=== PATIENT | female | born 1950 | race Caucasian/White ===

== ENCOUNTER 2023-08-06 00:17 | Inpatient (IN) | payer MEDICARE, SELFPAY ==
[2023-08-06] VITALS (9 sets, daily range): BP systolic 109–143; BP diastolic 39–57; PULSE 88–103; RESP 12–18; TEMP 36.6–38.2; O2SAT 94–99; BMI 25.0; BMI 25.8
--- NOTE | 2023-08-06 | ECG_ITS ---
Test Reason : ABDOMINAL PAIN Blood Pressure : / mmHG Vent. Rate : 086 BPM Atrial Rate : 086 BPM P-R Int : 128 ms QRS Dur : 066 ms QT Int : 362 ms P-R-T Axes : 072 026 049 degrees QTc Int : 433 ms Normal sinus rhythm Biatrial enlargement Nonspecific ST abnormality Abnormal ECG No previous ECGs available Referred By: Generic ED Physician Electronically Signed By:WESTON BOONE MD
--- NOTE | ~2023-08-06 | CT_ITS ---
EXAMINATION: CT ABDOMEN AND PELVIS WITH CONTRAST CLINICAL INFORMATION: Left lower quadrant and right lower quadrant pain COMPARISON: None available. TECHNIQUE: Multidetector volumetric images were obtained from the superior aspect of the liver through the pubic symphysis following administration 85 mL of Omnipaque 350 intravenous contrast. Sagittal and coronal reformatted images were obtained on the technologist's workstation. Oral contrast: No This CT examination was performed using dose optimization techniques as appropriate, variously including the following: *Automated exposure control *Adjustment of mA and/or kV according to patient size (this includes techniques or standardized protocols for targeted exams where dose is matched to indication/reason for exam; i.e. extremities or head) *Use of iterative reconstruction technique DLP: 483 mGy-cm FINDINGS: LUNG BASES: There is bibasilar dependent atelectasis/scarring. The heart size is normal. LIVER, GALLBLADDER, AND BILIARY TREE: The liver is normal in size, shape, and attenuation. No focal hepatic lesion or biliary ductal dilatation is present. The gallbladder is unremarkable with no evidence of radiopaque gallstones, gallbladder wall thickening, or obvious pericholecystic inflammatory changes. PANCREAS: Unremarkable. SPLEEN: Unremarkable. ADRENAL GLANDS: Unremarkable. KIDNEYS AND URETERS: The kidneys are normal in size, shape, and attenuation. No hydronephrosis, hydroureter, or calculi seen. No perinephric stranding. BLADDER: Unremarkable. GASTROINTESTINAL TRACT: There is a large amount of stool seen in the colon especially a low-lying cecum in the pelvis. There is short segment mural thickening involving the sigmoid colon but no diverticuli seen in this region. This could be secondary to colitis. There is abnormal thickened appendix measuring 1.5 cm wide. The small bowel loops are normal caliber. The stomach is nondistended with a small hiatal hernia. ABDOMINAL WALL: Small umbilical hernia containing fat is noted. LYMPH NODES: Normal. VASCULAR: Atherosclerotic changes of abdominal aorta are noted without aneurysmal dilatation.. PELVIC VISCERA: There is a small amount of free fluid in the pelvis. The uterus is midline neutral no adnexal masses seen. No abnormal pelvic or inguinal lymph nodes. OSSEOUS STRUCTURES: Unremarkable. CT/CT abdomen pelvis w IV con IMPRESSION: Abnormal study of the pelvis. There is short segment mural thickening involving the sigmoid colon and abnormal appendix. Whether this represents appendicitis with colitis versus colitis with reactionary appendix inflammation. There is small amount of free fluid in the pelvis. No free air seen. Moderate to significant constipation especially large amount of stool in the low-lying cecum in pelvis. Fleischner guidelines were followed.
--- NOTE | 2023-08-06 00:57 | MHC.EDTECH ---
Patient brought from triage,labs were obtained and sent to lab. Patient attempted to give a urine,but was unable to at this time.
[2023-08-06 00:58] LABS: Hematocrit 42.4 % (37.0-47.0); Hemoglobin 13.9 g/dl (12.0-16.0); Mean Corpuscular HGB Conc 32.8 g/dl (31.0-35.0); Mean Corpuscular Hemoglobin 28.8 pg (27.0-33.0); Mean Corpuscular Volume 87.8 fL (80.0-98.0); Mean Platelet Volume 9.6 fL (9.4-12.3); Platelet Count 289 X10*3/uL (160-400); Red Blood Count 4.83 X10*6/uL (4.20-5.50); Red Cell Distribution Width 13.2 % (11.0-16.0); White Blood Count 6.3 X10*3/uL (4.8-10.8)
--- NOTE | 2023-08-06 01:01 | MHC.EDTECH ---
Urine collected and sent to lab.
[2023-08-06 01:08] LABS: Appearance Urine Clear; Color Urine Yellow; Glucose Urine UA Negative (Negative); Leukocyte Esterase Urine Negative (Negative); Nitrite Urine Negative (Negative); Specific Gravity - Urine 1.015 (1.005-1.025); UMIC TRIGGER UACC YES; Urine Blood Negative (Negative); Urine Ketones 80 mg/dL (Negative); Urine Protein 100 (2+) mg/dL (Neg-Trace)
[2023-08-06 01:13] LABS: Alanine Aminotransferase 18 U/L (0-31); Albumin Level 4.1 g/dL (3.5-5.0); Alkaline Phosphatase 50 U/L (39-117); Anion Gap 12 (12-20); Aspartate Amino Transferase 22 U/L (5-31); Bilirubin Total 0.5 mg/dL (0.0-1.0); Blood Urea Nitrogen 15 mg/dL (9-16); Calcium 9.4 mg/dL (8.4-10.2); Carbon Dioxide 26 mmol/L (22-29); Chloride 104 mmol/L (96-108); Creatinine Clr Calc Pharmacy 61.1; Estimated Glomerular Filt Rate > 60; Glucose Random 160 mg/dL (60-115); Potassium 3.5 mmol/L (3.3-5.1); Sodium 138 mmol/L (135-145); Total Protein 6.7 g/dL (6.5-8.0)
[2023-08-06 01:19] LABS: Bacteria Urine None Seen (None Seen); Squamous Epithelial Cell Urine 0-2 /HPF (0-2); WBC Urine 0-5 /HPF (0-5)
[2023-08-06] MEDS: ondansetron HCL 4 MG/2 ML VIAL IVPUSH ×4 (04:23→20:51)
--- NOTE | 2023-08-06 04:30 | PC.NURSE ---
pt arrived from waiting room had vomiting episode. iv established. zofran given per nov. vss. changed into hospital gown and on heart monitor 91 bpm.
[2023-08-06 04:39] LABS: Bilirubin Direct 0.2 mg/dL (0.0-0.5); Lipase 9 U/L (8-78)
--- NOTE | 2023-08-06 06:50 | ED.ABDPAIN ---
HPI - Abdominal Pain General Chief Complaint: Abdominal Pain Stated Complaint: Lower Abdominal Pain Time Seen by Provider: 08/06/23 06:40 Source: patient and family () Mode of arrival: ambulatory Limitations: no limitations History of Present Illness HPI narrative: 72 year old female with pmhx significant for T1DM, HTN, HDL presents to the ED today with complaint of LLQ abdominal pain occurring acutely at 1600 yesterday. Reports pain has been constant and worsening since onset. Rates pain intensity 9/10 at present. Pain is worse with movement/ touching of the abdomen. Additionally endorses nausea with 4 episodes of vomiting. Last vomited a few hours ago. Emesis is brown in color. No bright red blood. Reports decreased P.O intake and difficulty passing BM since onset of symptoms yesterday. Admits to colonoscopy ~1 mo ago where a small polyp was removed. No complications. Denies fever, chills, sore throat, sob, cough, wheezing, neck or back pain, diarrhea, dysuria, hematuria. Denies recent travel. Denies known sick contacts. Related Data Home Medications Medication Instructions Recorded Confirmed amlodipine 5 mg-benazepril 20 mg 1 cap PO BID 08/06/23 08/06/23 capsule aspirin 81 mg tablet,delayed 81 mg PO DAILY 08/06/23 08/06/23 release calcium citrate 1,000 mg PO DAILY 08/06/23 08/06/23 clonidine HCl 0.2 mg tablet 0.2 mg PO BID 08/06/23 08/06/23 denosumab 60 mg/mL subcutaneous 60 mg subcut Q6M 08/06/23 08/06/23 syringe (Prolia) hydrochlorothiazide 12.5 mg capsule 12.5 mg PO DAILY 08/06/23 08/06/23 insulin detemir U-100 100 unit/mL 3 unit subcut BEDTIME 08/06/23 08/06/23 subcutaneous solution (Levemir U-100 Insulin) insulin detemir U-100 100 unit/mL 22 unit subcut DAILY 08/06/23 08/06/23 subcutaneous solution (Levemir U-100 Insulin) insulin lispro-aabc 100 unit/mL See Protocol subcut TIDAC 08/06/23 08/06/23 subcutaneous pen (Alfredo Felix U-100 Insulin) simvastatin 40 mg tablet 40 mg PO BEDTIME 08/06/23 08/06/23 Allergies Allergy/AdvReac Type Severity Reaction Status Date / Time neomycin [NEOMYCIN] Allergy Mild LOCAL EAR Verified 08/06/23 09:34 SWELLING FROM EAR DROPS YEARS AGO Review of Systems Review of Systems Constitutional: No fever, chills, fatigue, night sweats, weight changes ENT/Mouth: No ear pain, hearing loss, nasal congestion, sinus pain, rhinorrhea, sore throat Eyes: No eye pain, swelling, redness, vision changes, discharge Cardio: No chest pain, palpitations, HERMAN, orthopnea, peripheral edema Pulm: No SOB, cough, sputum, wheezing, dyspnea, hemoptysis GI: +nausea, +vomiting, No hematemesis, +abdominal pain, No diarrhea, constipation, hematochezia, melena : No irregular bleeding, dysuria, frequency, urgency, hesitancy, hematuria, flank pain, urinary flow changes, urinary incontinence or retention MSK: No back pain, neck pain, joint pain, myalgias Skin: No lesions, rashes Neuro: No weakness, numbness, paresthesias, LOC, dizziness, headache All other systems reviewed and are negative. [facility] Past Medical History Attestation statement: The following information was validated with the patient. Source: old records reviewed and nursing notes reviewed Medical History Graves disease Osteoporosis Hypercholesterolemia Hypertension Insulin dependent type 1 diabetes mellitus Surgical History H/O section Social History Patient Tobacco Use Status: Never used Tobacco Smoked in Last 30 Days: No Use of substances other than those prescribed or required for medical reasons: No Advance Directives: No Advance Directives Information Provided: Yes Physical Exam ED Vital Signs: Vital Signs - 24 hr 08/06/23 00:44 08/06/23 04:28 08/06/23 05:54 Temperature 98 F 99.4 F 99.3 F Pulse Rate 88 91 91 Respiratory Rate 16 17 17 Blood Pressure 118/47 L 143/56 H 129/50 L Pulse Oximetry 99 99 97 Oxygen Delivery Method Room Air Room Air Room Air 08/06/23 08:40 Temperature 100.3 F Pulse Rate 103 H Respiratory Rate 12 Blood Pressure 130/43 L Pulse Oximetry 98 Oxygen Delivery Method Room Air BMI result Body Mass Index 25.0 Vital signs stable Const General: cooperative, no acute distress, alert and awake Orientation/consciousness: patient oriented x3 Limitations: no limitations HENMT Mouth: Normal oral and palatal mucosa present and moist mucous membranes Eyes General: appearance normal, both eyes and all related structures Conjunctivae: conjunctivae normal Sclerae: sclerae normal Pupils: Equal, round and reactive pupils present Neck Neck: Yes normal visual inspection, Yes full ROM and Yes no lymphadenopathy Resp Effort & Inspection: normal respiratory effort Auscultation: clear to auscultation bilaterally Cardio Rate: regular rate Rhythm: regular rhythm Peripheral pulses: radial pulses present GI Other: +Abdomen soft, diffusely tender to palpation, no rebound tenderness or guarding. Normoactive bowel sounds x4. No hepatosplenomegaly. Inspection: Yes normal to inspection General: Yes no CVA tenderness Back/Spine/Pelvis Back: no CVA tenderness Skin General skin exam: no rashes or lesions noted Neuro General: patient oriented x3, gait normal and moves all extremities Cranial nerves: Yes Equal, round and reactive pupils present Extrem General: Yes normal to inspection, Yes full ROM and Yes capillary refill normal Course Course Course Narrative: 711-- EKG showing NSR with a rate of 86 bpm, QT 362, no acute ischemic changes or ST elevations. CBC without leukocytosis or anemia. Chemistry without acute electrolyte abnormality requiring intervention. Urine without evidence of infection. Labs unremarkable however given diffusely tender abdomen, will order ct abd/pelvis, zofran, and morphine for pain control. 0845--CT abdomen/ pelvis showing short-segment mural thickening involving the sigmoid colon with abnormal appendix. ?Appendicitis with colitis vs colitis with reactionary appendix inflammation. Small amount of free fluid in the pelvis. No free air. Moderate to significant constipation with large amount of stool in the low lying cecum >> Will consult general surgery. > RN informs me patient's temp has increased to 100/3. Tylenol ordered. 0900-- Dr. Anaya at bedside evaluating patient. General surgery to admit patient to their service for IV anitbiotics, observation, and ?surgery. Dr. Anaya to place admission orders. Medical Decision Making Medical Decision Making MDM Narrative: 72 year old female with pmhx significant for T1DM, HTN, HDL presents to the ED today with complaint of LLQ abdominal pain occurring acutely at 1600 yesterday. Vital signs stable, afebrile. Abdomen is soft, diffusely tender to palpation without rebound tenderness of guarding. Normoactive bs x4. No CVAT. Clinical concern for appendicitis, colitis, diverticulosis vs diverticulitis, SBO, constipation, acute abdomen. Unlikely UTI, nephrolithiasis, obstructive uropathy, pyelonephritits, ischemic bowel. Plan at this time is labs, UA, pain control, ct abd/pelvis, and re-evaluation. Differential Diagnosis Differential Diagnoses: The differential diagnosis associated with the presentation includes As above. Admission/Observation Consideration of admission/observation: Escalation of care including admission/observation considered This 72 yo patient with evidence of appendicitis and colitis on CT scan will be admitted to general surgery. Consult Healthcare Provider Management of the patient was discussed with: Sample Room Supervisor (Dr. Anaya (general surgery)) Lab Data MDM Lab Attestation statement: I reviewed the patient's lab results. As above. 08/06/23 00:53 08/06/23 00:53 Labs: Lab Results 08/06/23 08/06/23 08/06/23 Range/Units 00:53 01:01 07:44 WBC 6.3 (4.8-10.8) X10*3/uL RBC 4.83 (4.20-5.50) X10*6/uL Hgb 13.9 (12.0-16.0) g/dl Hct 42.4 (37.0-47.0) % MCV 87.8 (80.0-98.0) fL MCH 28.8 (27.0-33.0) pg MCHC 32.8 (31.0-35.0) g/dl RDW 13.2 (11.0-16.0) % Plt Count 289 (160-400) X10*3/uL MPV 9.6 (9.4-12.3) fL Absolute Nucleated RBC 0.000 (0.0-0.012) X10*3/uL Nucleated RBC % (auto) 0.0 (0.0-0.2) /100WBC Sodium 138 (135-145) mmol/L Potassium 3.5 (3.3-5.1) mmol/L Chloride 104 (96-108) mmol/L Carbon Dioxide 26 (22-29) mmol/L Anion Gap 12 (12-20) BUN 15 (9-16) mg/dL Creatinine 0.77 (0.5-1.4) mg/dL Estim Creat Clear Calc 61.1 Estimated GFR > 60 Random Glucose 160 H (60-115) mg/dL Calcium 9.4 (8.4-10.2) mg/dL Total Bilirubin 0.5 (0.0-1.0) mg/dL Direct Bilirubin 0.2 (0.0-0.5) mg/dL AST 22 (5-31) U/L ALT 18 (0-31) U/L Alkaline Phosphatase 50 (39-117) U/L Troponin I High Sens 8.3 (<3.5-17.0) ng/L Total Protein 6.7 (6.5-8.0) g/dL Albumin 4.1 (3.5-5.0) g/dL Lipase 9 (8-78) U/L Urine Color Yellow Urine Appearance Clear Urine pH 7.0 (5.0-9.0) Ur Specific [place] 1.015 (1.005-1.025) Urine Protein 100 (2+) H (Neg-Trace) mg/dL Urine Glucose (UA) Negative (Negative) mg/dL Urine Ketones 80 (Negative) mg/dL Urine Blood Negative (Negative) Urine Nitrite Negative (Negative) Ur Leukocyte Esterase Negative (Negative) Urine RBC 3-5 H (0-2) /HPF Urine WBC 0-5 (0-5) /HPF Ur Squamous Epith Cells 0-2 (0-2) /HPF Urine Bacteria None Seen (None Seen) Hyaline Casts 3-5 (0-2) /LPF Independent Interpretation I performed an independent interpretation of an: CT Scan Interpretation: EKG showing NSR with a rate of 86 bpm, QT 362, no acute ischemic changes or ST elevations. CT abd/pelvis showing mural thickening of sigmoid colon, agree with radiologist's interpretation. Radiology Impression Discussion of test interpretation with radiology: I have reviewed the radiologist's reading. Radiologist Impression: CT abdomen pelvis w IV con IMPRESSION: Abnormal study of the pelvis. There is short segment mural thickening involving the sigmoid colon and abnormal appendix. Whether this represents appendicitis with colitis versus colitis with reactionary appendix inflammation. There is small amount of free fluid in the pelvis. No free air seen. Moderate to significant constipation especially large amount of stool in the low-lying cecum in pelvis. Fleischner guidelines were followed. Independent Historian Clinical information obtained from an independent historian. History obtained from or confirmed by: Spouse External Record Review External record reviewed: Inpatient record Prescription Management I considered prescription management with: Pain Medication and Other (antiemetic) Chronic Conditions Patient?s care impacted by: Diabetes and Hypertension Medications Administered Generic Name Dose Route Start Last Admin Trade Name Freq PRN Reason Stop Dose Admin Aspirin 81 mg 08/06/23 14:30 08/06/23 17:41 Aspirin Enteric Coated 81 Mg Tablet.Dr PO Not Given DAILY FAITH Atorvastatin Calcium 20 mg 08/06/23 21:00 08/06/23 21:01 Atorvastatin Calcium 20 Mg Tablet PO 20 mg BEDTIME FAITH Administration Enoxaparin Sodium 40 mg 08/06/23 09:15 08/06/23 09:58 Enoxaparin Sodium 40 Mg/0.4 Ml Syringe SUBCUT 40 mg Q24H FAITH Administration Hydromorphone HCl 0.5 mg 08/06/23 09:11 08/06/23 20:38 Hydromorphone Hcl 0.5 Mg/0.5 Ml Syringe IVPUSH 0.5 mg Q3H PRN Administration Pain, Severe (Pain Scale 7-10) Protocol Lactated Ringer's 1,000 mls @ 100 mls/hr 08/06/23 09:15 08/06/23 09:49 Lr IVCONT 100 mls/hr .Q10H FAITH Administration Piperacillin Sod/Tazobactam 50 mls @ 100 mls/hr 08/06/23 09:15 08/06/23 20:52 Sod 3.375 gm/ Sodium Chloride IV 100 mls/hr Q6H FAITH Administration Insulin Human Lispro 0 unit 08/06/23 11:30 08/06/23 17:06 Insulin Lispro 100 Unit/Ml 3 Ml Vial SUBCUT 08/07/23 09:15 Not Given QIDACHS FAITH Protocol Ondansetron HCl 4 mg 08/06/23 09:11 08/06/23 20:51 Ondansetron Hcl 4 Mg/2 Ml Vial IVPUSH 4 mg QID PRN Administration Nausea Sodium Chloride 3 ml 08/06/23 16:00 08/06/23 17:06 0.9 % Sodium Chloride Flush 3 Ml Syringe IVFLUSH Not Given QSHIFT FAITH Discontinued Medications Generic Name Dose Route Start Last Admin Trade Name Rebeka PRN Reason Stop Dose Admin Acetaminophen 975 mg 08/06/23 08:43 08/06/23 08:46 Acetaminophen 325 Mg Tablet PO 08/06/23 08:44 975 mg ONCE ONE Administration Sodium Chloride 1,000 mls @ 999 mls/hr 08/06/23 07:15 08/06/23 09:33 Ns IV 08/06/23 08:15 Infused .Q1H1M FAITH Infusion Iohexol 85 ml 08/06/23 07:39 08/06/23 07:40 Iohexol 350 Mg/Ml 100 Ml Infus..Btl IV 08/06/23 07:40 85 ml ONCE ONE Administration Morphine Sulfate 2 mg 08/06/23 07:20 08/06/23 07:43 Morphine Sulfate 2 Mg/Ml Cartridge IM 08/06/23 07:21 2 mg ONCE ONE Administration Protocol Ondansetron HCl 4 mg 08/06/23 04:14 08/06/23 04:23 Ondansetron Hcl 4 Mg/2 Ml Vial IVPUSH 08/06/23 04:15 4 mg ONCE ONE Administration Ondansetron HCl 4 mg 08/06/23 07:20 08/06/23 07:43 Ondansetron Hcl 4 Mg/2 Ml Vial IVPUSH 08/06/23 07:21 4 mg ONCE ONE Administration Critical Care Time Critical Care Time Critical Care Time: Yes Total Critical Care Time: 60 Attestation: Critical care time in the amount of 60 minutes has been provided to the patient in terms of direct patient care, frequent reevaluation, consultation with general surgery, review and interpretation of medical data and results, and management of potentially life-threatening conditions. This is all outside of any medical procedures. Discharge Plan Discharge Clinical Impression: Appendicitis, Colitis Patient Disposition: Admitted As Inpatient Interventions: Admission Worksheet (ED) Last Done: 08/06/23 15:21 Discharge Date/Time: 08/06/23 15:21
[2023-08-06] MEDS: iohexoL 350 MG/ML 100 ML INFUS..BTL 85 ML IV (07:40)
[2023-08-06] MEDS: 0.9 % Sodium Chloride 1,000 ML 999 ML IV (07:43)
[2023-08-06] MEDS: Morphine Sulfate 2 MG/ML CARTRIDGE IM (07:43)
[2023-08-06 08:08] LABS: Troponin-I High Sensitivity 8.3 ng/L (<3.5-17.0)
[2023-08-06] MEDS: Acetaminophen 325 MG TABLET 975 MG PO (08:46)
--- NOTE | 2023-08-06 09:16 | P.HPGS_ITS ---
History of Present Illness History of Present Illness Date of Service: 08/06/23 Chief complaint: Lower Abdominal Pain Narrative: 72-year-old female patient presenting with a sudden onset of abdominal pain in the lower quadrants last evening. Patient reports a previous history of constipation but denies a similar history of abdominal pain prior to the current episode. She subsequently presented to the emergency department for further evaluation at approximately midnight this morning. She reports nausea and vomiting but denies diarrhea or bloody stool. Workup in the emergency department revealed a normal WBC. Examination did revealed tenderness in the lower abdomen, equally both right and left. CT abdomen and pelvis revealed a short area of possible colitis with a dilated appendix. Findings were suggestive either of acute appendicitis with surrounding colitis verses colitis with secondary from inflammation of the appendix. The patient is admitted to the surgical service for IV antibiotics and further monitoring. Her past history is significant for insulin-dependent diabetes, hypertension, and high cholesterol. Review of Systems Review of Systems: Yes all other systems are reviewed and are negative Constitutional: Constitutional: Reports chills, Reports fever(s), Denies headache(s), Denies poor appetite and Denies weakness ENT: Denies headache(s) Cardiovascular: Cardiovascular: Denies chest pain, Denies irregular heart rhythm, Denies palpitations and Denies dyspnea Respiratory: Respiratory: Denies cough, Denies excessive phlegm production and Denies dyspnea Gastrointestinal: Gastrointestinal: Reports abdominal pain, Reports bloating, Denies change in bowel habits, Reports constipation, Denies heartburn, Denies diarrhea, Reports nausea and Reports vomiting Genitourinary: Genitourinary: Denies urinary frequency Musculoskeletal: Musculoskeletal: Denies back pain, Denies muscle weakness and Denies numbness Integumentary/Breasts: Skin/Breast: Denies changing lesions and Denies unusual bruising Neurologic: Denies headache(s), Denies numbness, Denies paresthesias and Denies weakness Psychiatric: Psychiatric: Denies anxiety and Denies depression Endocrine: Endocrine: Denies palpitations Hematologic/Lymphatic: Hematologic/Lymphatic: Denies lymphadenopathy PMF Past Medical History Medical History (Updated 08/06/23 @ 09:23 by Héctor Anaya MD) Hypercholesterolemia Hypertension Insulin dependent type 1 diabetes mellitus Functional capacity: independent ambulation Surgical History Surgical History (Updated 08/06/23 @ 09:21 by Héctor Anaya MD) H/O section Social History Smoked in Last 30 Days: No Use of substances other than those prescribed or required for medical reasons: No Advance Directives: No Advance Directives Information Provided: Yes Meds Allergies Allergy/AdvReac Type Severity Reaction Status Date / Time neomycin [NEOMYCIN] Allergy Mild LOCAL EAR Unverified 06/01/20 14:52 SWELLING FROM EAR DROPS YEARS AGO Physical Exam Vital Signs: Vital Signs: Last Vital Signs Temp 100.3 F 08/06/23 08:40 Pulse 103 H 08/06/23 08:40 Resp 12 08/06/23 08:40 BP 130/43 L 08/06/23 08:40 Pulse Ox 98 08/06/23 08:40 O2 Del Method Room Air 08/06/23 08:40 BMI result Body Mass Index 25.0 Const: General: cooperative and tired appearing Nutritional Appearance: we ll nourished Orientation/consciousness: patient oriented x3 Limitations: no limitations HEENT: Head: Yes normocephalic and Yes atraumatic Ears: hearing grossly normal bilaterally Resp: Effort & Inspection: normal respiratory effort, no audible wheezes, no cough and no respiratory distress Cardio: Jugular venous distension: no JVD GI: Inspection: Yes normal to inspection Palpation (GI): Soft to palpation, Tenderness to palpation present (GI) in the LLQ and in the RLQ, no guarding, not rigid and Hepatosplenomegaly present Percussion: Yes normal to percussion Auscultation: normal bowel sounds Rectal Exam - Female: deferred Skin: Other: Warm, dry, no rash Neuro: General: patient oriented x3 Extrem: General: Yes no clubbing, cyanosis or edema Results Results Labs: Short CBC 08/06/23 Range/Units 00:53 WBC 6.3 (4.8-10.8) X10*3/uL Hgb 13.9 (12.0-16.0) g/dl Hct 42.4 (37.0-47.0) % Plt Count 289 (160-400) X10*3/uL BMP 08/06/23 00:53 Sodium 138 Potassium 3.5 Chloride 104 Carbon Dioxide 26 BUN 15 Creatinine 0.77 Calcium 9.4 Liver Function 08/06/23 Range/Units 00:53 Total Bilirubin 0.5 (0.0-1.0) mg/dL Direct Bilirubin 0.2 (0.0-0.5) mg/dL AST 22 (5-31) U/L ALT 18 (0-31) U/L Alkaline Phosphatase 50 (39-117) U/L Albumin 4.1 (3.5-5.0) g/dL Urine 08/06/23 Range/Units 01:01 Urine Color Yellow Urine Appearance Clear Urine pH 7.0 (5.0-9.0) Ur Specific [place] 1.015 (1.005-1.025) Urine Protein 100 (2+) H (Neg-Trace) mg/dL Urine Glucose (UA) Negative (Negative) mg/dL Abdomen CT scan report/results: image reviewed CT scan - pelvis: image reviewed Assessment and Plan (1) Appendicitis: Qualifiers: Appendicitis type: acute appendicitis Acute appendicitis type: other Qualified Code(s): K35.890 - Other acute appendicitis without perforation or gangrene Status: Acute (2) Colitis: Status: Acute Plan 72-year-old female patient presenting with complaints of lower abdominal pain of sudden onset beginning yesterday with no prodrome. Pain was associated with fever, constipation, nausea and vomiting. Workup revealed tenderness in the lower abdomen both the left and right side equally. Laboratories revealed a normal WBC and CT abdomen and pelvis are equivocal for either colitis or appendicitis with no evidence of perforation or abscess formation. Because of the severity of the patient's pain and the presence of fever, I recommended admission for observation and IV antibiotics. Hospitalist consultation will be requested for management of diabetes and other medical issues. A plan was discussed in detail with the patient and her and she agrees with the plan. Should her symptoms worsen she may require an exploratory laparoscopy, possible bowel resection or possible appendectomy. Quality Stroke Does the patient have a stroke diagnosis?: No VTE Prior VTE?: No VTE Risk Level:: Surgical - moderate VTE Device Contraindication: N/A - Device Ordered VTE Drug Contraindication: N/A - Med Ordered Procedures Date of Service Date of Service: 08/06/23
[2023-08-06] MEDS: Lactated Ringers 1,000 ML 100 ML IVCONT ×2 (09:49→22:48)
--- NOTE | 2023-08-06 09:54 | PC.NURSE ---
temp increased after tylenol, provider notified
[2023-08-06] MEDS: Piperacillin Sodium/Tazobactam 3.375 GM in 0.9 % Sodium Chloride 50 ML IV ×3 (09:58→20:52)
[2023-08-06] MEDS: Enoxaparin Sodium 40 MG/0.4 ML SYRINGE SUBCUT (09:58)
--- NOTE | 2023-08-06 10:27 | PC.NURSE ---
IV abt started after blood cultures x2 drawn by phlebotomy
--- NOTE | 2023-08-06 10:52 | PHA.MEDREC ---
Pharmacy Consult ? Medication Reconciliation Pharmacy has completed the medication reconciliation. Patient with list at bedside, stated that her last Prolia was given in April, next dose is due in October
--- NOTE | 2023-08-06 11:29 | P.CONHOSP_ITS ---
History of Present Illness Data of Consult Service Date: 08/06/23 Primary Care Provider: Unknown Physician HPI Reason for consult: Medical management Patient is a 72-year-old female with a PMH significant for insulin-dependent diabetes type 1, HTN, HLD, osteoporosis, and hx of Graves disease who was admitted to the hospital under general surgery for lower abdominal pain. Workup in the ED showed no leukocytosis but CT of abdomen and pelvis revealed findings suggestive of either acute appendicitis with surrounding colitis versus colitis with secondary inflammation of the appendix. Medical consult for routine medical management. Patient complains of diffuse lower abdominal pain. Had experienced nausea and vomiting since last night, though currently controlled. Patient denies any other acute medical complaints at this time. No chest pain/pressure, palpitations. No shortness of breath. Review of Systems 2 Review of Systems: Diffuse lkower abdominal pain [facility] Medical History (Updated 08/06/23 @ 11:51 by RODGER Duvall) Graves disease Osteoporosis Hypercholesterolemia Hypertension Insulin dependent type 1 diabetes mellitus Functional capacity: independent ambulation Surgical History H/O section Smoked in Last 30 Days: No Use of substances other than those prescribed or required for medical reasons: No Advance Directives: No Advance Directives Information Provided: Yes Meds Allergies Allergy/AdvReac Type Severity Reaction Status Date / Time neomycin [NEOMYCIN] Allergy Mild LOCAL EAR Verified 08/06/23 09:34 SWELLING FROM EAR DROPS YEARS AGO Active Medications: Current Medications Dextrose (Dextrose 50 % 25 Gm/50 Ml Syringe) 25 gm IVPUSH Q15M PRN; Protocol PRN Reason: per Hypoglycemia Standing Ord. Enoxaparin Sodium (Enoxaparin Sodium 40 Mg/0.4 Ml Syringe) 40 mg SUBCUT Q24H [facility] Last Admin: 08/06/23 09:58 Dose: 40 mg Glucose (Glucose Gel 15 Gm Gel..Gram.) 15 gm PO Q15M PRN; Protocol PRN Reason: per Hypoglycemia Standing Ord. Hydromorphone HCl (Hydromorphone Hcl 0.5 Mg/0.5 Ml Syringe) 0.5 mg IVPUSH Q3H PRN; Protocol PRN Reason: Pain, Severe (Pain Scale 7-10) Acetaminophen (Ofirmev) 1,000 mg in 100 mls @ 400 mls/hr IV Q6H PRN PRN Reason: Pain, Moderate(Pain Scale 4-6) Lactated Ringer's (Lr) 1,000 mls @ 100 mls/hr IVCONT .Q10H [facility] Last Admin: 08/06/23 09:49 Dose: 100 mls/hr Piperacillin Sod/Tazobactam (Sod 3.375 gm/ Sodium Chloride) 50 mls @ 100 mls/hr IV Q6H [facility] Last Admin: 08/06/23 09:58 Dose: 100 mls/hr Insulin Human Lispro (Insulin Lispro 100 Unit/Ml 3 Ml Vial) 0 unit SUBCUT QIDACHS [facility]; Protocol Stop: 08/07/23 09:15 Ondansetron HCl (Ondansetron Hcl 4 Mg/2 Ml Vial) 4 mg IVPUSH QID PRN PRN Reason: Nausea Sodium Chloride (0.9 % Sodium Chloride Flush 3 Ml Syringe) 3 [facility] Zolpidem Tartrate (Zolpidem Tartrate 5 Mg Tablet) 5 mg PO BEDTIME PRN PRN Reason: Insomnia Home Medications Medication Instructions Recorded Confirmed Last Taken Type amlodipine 5 mg-benazepril 20 mg 1 cap PO BID 08/06/23 08/06/23 08/05/23 History capsule aspirin 81 mg tablet,delayed 81 mg PO DAILY 08/06/23 08/06/23 08/05/23 History release calcium citrate 1,000 mg PO DAILY 08/06/23 08/06/23 08/05/23 History clonidine HCl 0.2 mg tablet 0.2 mg PO BID 08/06/23 08/06/23 08/05/23 History denosumab 60 mg/mL subcutaneous 60 mg subcut Q6M 08/06/23 08/06/23 04/24/23 History syringe (Prolia) hydrochlorothiazide 12.5 mg capsule 12.5 mg PO DAILY 08/06/23 08/06/23 08/05/23 History insulin detemir U-100 100 unit/mL 3 unit subcut BEDTIME 08/06/23 08/06/23 08/05/23 History subcutaneous solution (Levemir U-100 Insulin) insulin detemir U-100 100 unit/mL 22 unit subcut DAILY 08/06/23 08/06/23 08/05/23 History subcutaneous solution (Levemir U-100 Insulin) insulin lispro-aabc 100 unit/mL See Protocol subcut TIDAC 08/06/23 08/06/23 08/05/23 History subcutaneous pen (Alfredo PeñaPen U-100 Insulin) simvastatin 40 mg tablet 40 mg PO BEDTIME 08/06/23 08/06/23 08/05/23 History Physical Exam 2 Vital Signs and Narrative: Vital Signs: Last Vital Signs Temp 99.6 F 08/06/23 11:00 Pulse 88 08/06/23 11:00 Resp 18 08/06/23 11:00 BP 109/39 L 08/06/23 11:00 Pulse Ox 98 08/06/23 08:40 O2 Del Method Room Air 08/06/23 11:00 O2 Flow Rate 94 08/06/23 11:00 BMI result Body Mass Index 25.0 General: AOx3, no acute distress Resp: CTA bilaterally CVS: S1, S2, 2/6 chronic heart murmur heard at left sternal border GI: +BS, NT, no distention Skin: Warm, dry Neuro: Cranial nerves II-XII grossly intact bilaterally. Motor grossly intact bilaterally Extremities: No edema Psych: Appropriate affect Results Labs 08/06/23 00:53 08/06/23 00:53 Labs: Laboratory Results - last 24 hr 08/06/23 08/06/23 00:53 01:01 MCV 87.8 MCH 28.8 MCHC 32.8 RDW 13.2 Plt Count 289 MPV 9.6 Absolute Nucleated RBC 0.000 Nucleated RBC % (auto) 0.0 Anion Gap 12 Estim Creat Clear Calc 61.1 Estimated GFR > 60 Random Glucose 160 H Calcium 9.4 Total Bilirubin 0.5 Direct Bilirubin 0.2 AST 22 ALT 18 Alkaline Phosphatase 50 Total Protein 6.7 Albumin 4.1 Lipase 9 Urine Color Yellow Urine Appearance Clear Urine pH 7.0 Ur Specific [place] 1.015 Urine Protein 100 (2+) H Urine Glucose (UA) Negative Urine Ketones 80 Urine Blood Negative Urine Nitrite Negative Ur Leukocyte Esterase Negative Urine RBC 3-5 H Urine WBC 0-5 Ur Squamous Epith Cells 0-2 Urine Bacteria None Seen Hyaline Casts 3-5 Imaging Radiologist's Impressions: Impressions Abdomen/Pelvis CT 11/22/23 07:40 IMPRESSION: Abnormal study of the pelvis. There is short segment mural thickening involving the sigmoid colon and abnormal appendix. Whether this represents appendicitis with colitis versus colitis with reactionary appendix inflammation. There is small amount of free fluid in the pelvis. No free air seen. Moderate to significant constipation especially large amount of stool in the low-lying cecum in pelvis. Fleischner guidelines were followed. Assessment and Plan (1) Insulin dependent type 1 diabetes mellitus: Status: Acute (2) Colitis: Status: Acute Plan Patient is a 72-year-old female with a PMH significant for insulin-dependent diabetes type 1, HTN, HLD, osteoporosis, and hx of Graves disease who was admitted to the hospital under general surgery for lower abdominal pain. Workup in the ED showed no leukocytosis but CT of abdomen and pelvis revealed findings suggestive of either acute appendicitis with surrounding colitis versus colitis with secondary inflammation of the appendix. Medical consult for routine medical management. Lower abdominal pain CT of abdomen and pelvis with results suggestive of either acute appendicitis with surrounding colitis vs colitis with secondary inflammation of the appendix Patient is currently NPO, receiving IVF and IV antibiotics Plan as per General surgery Insulin-dependent diabetes type 1 Patient NPO, will hold long-acting insulin for now Will place on sliding scale insulin Diabetic diet once diet advanced Follow blood glucose levels HTN Will hold antihypertensives for now d/t soft BP Resume as warranted HLD Continue statin Hx of Graves disease Patient previously on PTU, has not been on any home medications for 20+ years Attending: Dr. Cooley Thank you for allowing us to participate in the care of this patient. Will continue to follow along with you.
[2023-08-06] MEDS: HYDROmorphone HCl 0.5 MG/0.5 ML SYRINGE IVPUSH ×3 (12:21→20:38)
--- NOTE | 2023-08-06 14:38 | PC.NURSE ---
Report given to accepting unit
[2023-08-06 19:54] LABS: Glucose, Whole Blood 151 mg/dL (60-115)
[2023-08-06] MEDS: Atorvastatin Calcium 20 MG TABLET PO (21:01)
[2023-08-07] VITALS (7 sets, daily range): BP systolic 127–149; BP diastolic 58–69; PULSE 89–100; RESP 18–20; TEMP 36.3–37.6; O2SAT 92–97
[2023-08-07] MEDS: Piperacillin Sodium/Tazobactam 3.375 GM in 0.9 % Sodium Chloride 50 ML IV ×4 (04:07→20:47)
[2023-08-07] MEDS: ondansetron HCL 4 MG/2 ML VIAL IVPUSH ×4 (04:24→23:42)
[2023-08-07] MEDS: HYDROmorphone HCl 0.5 MG/0.5 ML SYRINGE IVPUSH ×4 (05:01→23:47)
[2023-08-07 07:02] LABS: Basophils Absolute Auto 0.1 X10*3/uL (0.0-0.2); Basophils Percent Auto 0.4 % (0-2); Eosinophils Absolute Auto 0.1 X10*3/uL (0.0-0.4); Eosinophils Percent Auto 0.7 % (0-4); Hematocrit 36.7 % (37.0-47.0); Hemoglobin 11.7 g/dl (12.0-16.0); Imm Gran Abs Auto 0.03 X10*3/uL (0.00-0.03); Imm Gran Pct Auto 0.2 % (0.0-0.4); Lymphocytes Absolute Auto 0.5 X10*3/uL (1.2-4.9); Lymphocytes Percent Auto 3.8 % (20-40); MANUAL DIFF FLAG SCAN; Mean Corpuscular HGB Conc 31.9 g/dl (31.0-35.0); Mean Corpuscular Hemoglobin 29.5 pg (27.0-33.0); Mean Corpuscular Volume 92.7 fL (80.0-98.0); Monocytes Absolute Auto 0.6 X10*3/uL (0.1-1.2); Monocytes Percent Auto 4.4 % (2-11); Neutrophils Absolute Auto 12.2 x10*3/uL (2.0-8.3); Neutrophils Percent Auto 90.5 % (45-73); Platelet Count 229 X10*3/uL (160-400); Red Blood Count 3.96 X10*6/uL (4.20-5.50); Red Cell Distribution Width 13.9 % (11.0-16.0); SCAN SMEAR FLAG 1; White Blood Count 13.5 X10*3/uL (4.8-10.8)
[2023-08-07 07:09] LABS: Glucose, Whole Blood 244 mg/dL (60-115)
[2023-08-07 07:16] LABS: Anion Gap 20 (12-20); Blood Urea Nitrogen 31 mg/dL (9-16); Carbon Dioxide 16 mmol/L (22-29); Chloride 106 mmol/L (96-108); Creatinine Clr Calc Pharmacy 48.3; Estimated Glomerular Filt Rate 55; Glucose Random 297 mg/dL (60-115); Potassium 3.8 mmol/L (3.3-5.1); Sodium 138 mmol/L (135-145)
[2023-08-07 07:46] LABS: SLIDE REVIEW VERIFIED
--- NOTE | 2023-08-07 08:10 | MHC.CM.PN ---
CM met with Patient at bedside and addressed ORTIZ with her, providing Patient with the original and placing a copy on the chart. 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 Home self care is the goal and CM has initiated and will follow for dc planning. PCP is Dr. Juanita Jeter in [place].
[2023-08-07] MEDS: Enoxaparin Sodium 40 MG/0.4 ML SYRINGE SUBCUT (08:14)
[2023-08-07] MEDS: Insulin Glargine,Hum.rec.anlog 100 UNIT/ML 10 ML VIAL 10 UNIT SUBCUT (08:15)
[2023-08-07] MEDS: Metoclopramide HCl 10 MG/2 ML VIAL IVPUSH (08:16)
[2023-08-07] MEDS: Lactated Ringers 1,000 ML 100 ML IVCONT ×2 (08:19→19:19)
[2023-08-07] MEDS: 0.9 % Sodium Chloride Flush 3 ML SYRINGE IVFLUSH ×3 (08:26→20:52)
[2023-08-07] MEDS: Insulin Lispro 100 UNIT/ML 3 ML VIAL SUBCUT ×4 (08:26→20:43)
[2023-08-07 08:42] LABS: Glucose, Whole Blood 304 mg/dL (60-115)
--- NOTE | 2023-08-07 09:42 | P.PNIM_ITS ---
Subjective Subjective Date of Service: 08/07/23 Interval History: nausea Physical Exam 2 Vital Signs: Vital Signs: Last Vital Signs Temp 98.5 F 08/07/23 07:19 Pulse 98 08/07/23 07:19 Resp 20 08/07/23 07:19 BP 127/58 L 08/07/23 07:19 Pulse Ox 92 08/07/23 07:19 O2 Del Method Room Air 08/07/23 07:19 O2 Flow Rate 94 08/06/23 11:00 BMI result Body Mass Index 25.8 Const: General: cooperative and tired appearing Nutritional Appearance: w ell nourished Orientation/consciousness: patient oriented x3 Limitations: no limitations HEENT: Head: Yes normocephalic and Yes atraumatic Ears: hearing grossly normal bilaterally Resp: Effort & Inspection: normal respiratory effort, no audible wheezes, no cough and no respiratory distress Cardio: Jugular venous distension: no JVD GI: Inspection: Yes normal to inspection Palpation (GI): Soft to palpation, Tenderness to palpation present (GI) in the LLQ and in the RLQ, no guarding, not rigid and Hepatosplenomegaly present Percussion: Yes normal to percussion Auscultation: normal bowel sounds Rectal Exam - Female: deferred Skin: Other: Warm, dry, no rash Neuro: General: patient oriented x3 Extrem: General: Yes no clubbing, cyanosis or edema Objective Data Active Medications Aspirin (Aspirin Enteric Coated 81 Mg Tablet.) 81 mg PO DAILY [facility] Last Admin: 08/07/23 08:36 Dose: Not Given Documented By: RAFY Non-Admin Reason: Patient Refused Atorvastatin Calcium (Atorvastatin Calcium 20 Mg Tablet) 20 mg PO BEDTIME [facility] Last Admin: 08/06/23 21:01 Dose: 20 mg Documented By: ALLEY Calcium Carbonate (Calcium Carbonate 500 Mg Tablet) 1,000 mg PO DAILY [facility] Last Admin: 08/07/23 08:18 Dose: 1,000 mg Documented By: RAFY Dextrose (Dextrose 50 % 25 Gm/50 Ml Syringe) 25 gm IVPUSH Q15M PRN; Protocol PRN Reason: per Hypoglycemia Standing Ord. Enoxaparin Sodium (Enoxaparin Sodium 40 Mg/0.4 Ml Syringe) 40 mg SUBCUT Q24H [facility] Last Admin: 08/07/23 08:14 Dose: 40 mg Documented By: RAFY Glucose (Glucose Gel 15 Gm Gel..Gram.) 15 gm PO Q15M PRN; Protocol PRN Reason: per Hypoglycemia Standing Ord. Hydromorphone HCl (Hydromorphone Hcl 0.5 Mg/0.5 Ml Syringe) 0.5 mg IVPUSH Q3H PRN; Protocol PRN Reason: Pain, Severe (Pain Scale 7-10) Last Admin: 08/07/23 08:18 Dose: 0.5 mg Documented By: RAFY Acetaminophen (irmev) 1,000 mg in 100 mls @ 400 mls/hr IV Q6H PRN PRN Reason: Pain, Moderate(Pain Scale 4-6) Lactated Ringer's (Lr) 1,000 mls @ 100 mls/hr IVCONT .Q10H [facility] Last Admin: 08/07/23 08:19 Dose: 100 mls/hr Documented By: RAFY Piperacillin Sod/Tazobactam (Sod 3.375 gm/ Sodium Chloride) 50 mls @ 100 mls/hr IV Q6H [facility] Last Admin: 08/07/23 08:13 Dose: 100 mls/hr Documented By: RAFY Insulin Glargine (Insulin Glargine,Hum.Rec.Anlog 100 Unit/Ml 10 Ml Vial) 10 unit SUBCUT DAILY [facility] Last Admin: 08/07/23 08:15 Dose: 10 unit Documented By: RAFY Metoclopramide HCl (Metoclopramide Hcl 10 Mg/2 Ml Vial) 10 mg IVPUSH Q6H PRN PRN Reason: Nausea and Vomiting Last Admin: 08/07/23 08:16 Dose: 10 mg Documented By: RAFY Ondansetron HCl (Ondansetron Hcl 4 Mg/2 Ml Vial) 4 mg IVPUSH QID PRN PRN Reason: Nausea Last Admin: 08/07/23 04:24 Dose: 4 mg Documented By: ALLEY Sodium Chloride (0.9 % Sodium Chloride Flush 3 Ml Syringe) [facility] Last Admin: 08/07/23 08:26 Dose: 3 ml Documented By: RAFY Zolpidem Tartrate (Zolpidem Tartrate 5 Mg Tablet) 5 mg PO BEDTIME PRN PRN Reason: Insomnia Labs 08/07/23 05:46 08/07/23 05:46 Labs: Laboratory Results - last 24 hr 08/06/23 08/07/23 08/07/23 19:50 05:46 07:02 MCV 92.7 MCH 29.5 MCHC 31.9 RDW 13.9 Plt Count 229 MPV 11.0 Immature Gran % (Auto) 0.2 Neut % (Auto) 90.5 H Lymph % (Auto) 3.8 L [place] % (Auto) 4.4 Eos % (Auto) 0.7 Baso % (Auto) 0.4 Lymph # (Auto) 0.5 L [place] # (Auto) 0.6 Eos # (Auto) 0.1 Baso # (Auto) 0.1 Abs Immat Gran (auto) 0.03 Absolute Neuts (auto) 12.2 H Absolute Nucleated RBC 0.000 Nucleated RBC % (auto) 0.0 Smear Tech's Comments VERIFIED Anion Gap 20 Estim Creat Clear Calc 48.3 Estimated GFR 55 POC Glucose 151 H 244 H Random Glucose 297 H Calcium 9.0 08/07/23 08:31 MCV MCH MCHC RDW Plt Count MPV Immature Gran % (Auto) Neut % (Auto) Lymph % (Auto) [place] % (Auto) Eos % (Auto) Baso % (Auto) Lymph # (Auto) [place] # (Auto) Eos # (Auto) Baso # (Auto) Abs Immat Gran (auto) Absolute Neuts (auto) Absolute Nucleated RBC Nucleated RBC % (auto) Smear Tech's Comments Anion Gap Estim Creat Clear Calc Estimated GFR POC Glucose 304 H Random Glucose Calcium Assessment and Plan (1) Insulin dependent type 1 diabetes mellitus: Status: Acute Plan 72-year-old female with a PMH significant for insulin-dependent diabetes type 1, HTN, HLD, osteoporosis, and hx of Graves disease admitted for abdominal pain DM1 with hyperglycemia restart long acting insulin at half base dose, continue sliding scale, monitor closely htn hctz on hold while on ivf hld statin graves not on meds full code Quality Stroke Does the patient have a stroke diagnosis?: No VTE Prior VTE?: No VTE Risk Level:: Surgical - moderate VTE Device Contraindication: N/A - Device Ordered VTE Drug Contraindication: N/A - Med Ordered
[2023-08-07 11:10] LABS: Glucose, Whole Blood 254 mg/dL (60-115)
--- NOTE | 2023-08-07 14:18 | PM.PNGS ---
Subjective Subjective Date of Service: 08/07/23 Interval history: pt says feeling much better, abdo much less tender, she can touch it and move well, has been having sig nausea though no emesis Physical Exam Vital Signs: Vital Signs: Last Vital Signs Temp 98.2 F 08/07/23 11:07 Pulse 97 08/07/23 11:07 Resp 20 08/07/23 11:07 BP 149/69 H 08/07/23 11:07 Pulse Ox 94 08/07/23 11:07 O2 Del Method Room Air 08/07/23 11:07 O2 Flow Rate 94 08/06/23 11:00 BMI result Body Mass Index 25.8 Const: General: cooperative and ill appearing (mildly ill appearing) Orientation/consciousness: oriented to person, oriented to place and oriented to time HEENT: Head: Yes normal to inspection Resp: Effort & Inspection: normal respiratory effort and able to speak in complete sentences Auscultation: clear to auscultation bilaterally Cardio: Rate: regular rate Rhythm: regular rhythm GI: Other: abdo soft little tender rlq with some mild guarding less tender left side no guarding or rebound and active bowel sounds Skin: General skin exam: no rashes or lesions noted Neuro: General: oriented to person, oriented to place and oriented to time Objective Data Active Medications Aspirin (Aspirin Enteric Coated 81 Mg Tablet.) 81 mg PO DAILY [facility] Last Admin: 08/07/23 08:36 Dose: Not Given Documented By: RAFY Non-Admin Reason: Patient Refused Atorvastatin Calcium (Atorvastatin Calcium 20 Mg Tablet) 20 mg PO BEDTIME [facility] Last Admin: 08/06/23 21:01 Dose: 20 mg Documented By: ALLEY Calcium Carbonate (Calcium Carbonate 500 Mg Tablet) 1,000 mg PO DAILY [facility] Last Admin: 08/07/23 08:18 Dose: 1,000 mg Documented By: RAFY Dextrose (Dextrose 50 % 25 Gm/50 Ml Syringe) 25 gm IVPUSH Q15M PRN; Protocol PRN Reason: per Hypoglycemia Standing Ord. Dextrose (Dextrose 50 % 25 Gm/50 Ml Syringe) 25 gm IVPUSH Q15M PRN; Protocol PRN Reason: per Hypoglycemia Standing Ord. Enoxaparin Sodium (Enoxaparin Sodium 40 Mg/0.4 Ml Syringe) 40 mg SUBCUT Q24H [facility] Last Admin: 08/07/23 08:14 Dose: 40 mg Documented By: RAFY Glucose (Glucose Gel 15 Gm Gel..Gram.) 15 gm PO Q15M PRN; Protocol PRN Reason: per Hypoglycemia Standing Ord. Hydromorphone HCl (Hydromorphone Hcl 0.5 Mg/0.5 Ml Syringe) 0.5 mg IVPUSH Q3H PRN; Protocol PRN Reason: Pain, Severe (Pain Scale 7-10) Last Admin: 08/07/23 08:18 Dose: 0.5 mg Documented By: RAFY Acetaminophen ([facility]) 1,000 mg in 100 mls @ 400 mls/hr IV Q6H PRN PRN Reason: Pain, Moderate(Pain Scale 4-6) Lactated Ringer's (Lr) 1,000 mls @ 100 mls/hr IVCONT .Q10H [facility] Last Admin: 08/07/23 08:19 Dose: 100 mls/hr Documented By: RAFY Piperacillin Sod/Tazobactam (Sod 3.375 gm/ Sodium Chloride) 50 mls @ 100 mls/hr IV Q6H [facility] Last Infusion: 08/07/23 11:20 Dose: Infused Documented By: RAFY Insulin Glargine (Insulin Glargine,Hum.Rec.Anlog 100 Unit/Ml 10 Ml Vial) 10 unit SUBCUT DAILY [facility] Last Admin: 08/07/23 08:15 Dose: 10 unit Documented By: RAFY Insulin Human Lispro (Insulin Lispro 100 Unit/Ml 3 Ml Vial) 0 unit SUBCUT QIDACHS [facility]; Protocol Last Admin: 08/07/23 11:43 Dose: 6 unit Documented By: RAFY Comments: Metoclopramide HCl (Metoclopramide Hcl 10 Mg/2 Ml Vial) 10 mg IVPUSH Q6H PRN PRN Reason: Nausea and Vomiting Last Admin: 08/07/23 08:16 Dose: 10 mg Documented By: RAFY Ondansetron HCl (Ondansetron Hcl 4 Mg/2 Ml Vial) 4 mg IVPUSH QID PRN PRN Reason: Nausea Last Admin: 08/07/23 11:37 Dose: 4 mg Documented By: RAFY Sodium Chloride (0.9 % Sodium Chloride Flush 3 Ml Syringe) 3 ml IVFLUSH QSHIFT [facility] Last Admin: 08/07/23 08:26 Dose: 3 ml Documented By: RAFY Zolpidem Tartrate (Zolpidem Tartrate 5 Mg Tablet) 5 mg PO BEDTIME PRN PRN Reason: Insomnia Labs 08/07/23 05:46 08/07/23 05:46 Labs: Laboratory Results - last 24 hr 08/06/23 08/07/23 08/07/23 19:50 05:46 07:02 MCV 92.7 MCH 29.5 MCHC 31.9 RDW 13.9 Plt Count 229 MPV 11.0 Immature Gran % (Auto) 0.2 Neut % (Auto) 90.5 H Lymph % (Auto) 3.8 L [place] % (Auto) 4.4 Eos % (Auto) 0.7 Baso % (Auto) 0.4 Lymph # (Auto) 0.5 L [place] # (Auto) 0.6 Eos # (Auto) 0.1 Baso # (Auto) 0.1 Abs Immat Gran (auto) 0.03 Absolute Neuts (auto) 12.2 H Absolute Nucleated RBC 0.000 Nucleated RBC % (auto) 0.0 Smear Tech's Comments VERIFIED Anion Gap 20 Estim Creat Clear Calc 48.3 Estimated GFR 55 POC Glucose 151 H 244 H Random Glucose 297 H Calcium 9.0 08/07/23 08/07/23 08:31 11:00 MCV MCH MCHC RDW Plt Count MPV Immature Gran % (Auto) Neut % (Auto) Lymph % (Auto) [place] % (Auto) Eos % (Auto) Baso % (Auto) Lymph # (Auto) [place] # (Auto) Eos # (Auto) Baso # (Auto) Abs Immat Gran (auto) Absolute Neuts (auto) Absolute Nucleated RBC Nucleated RBC % (auto) Smear Tech's Comments Anion Gap Estim Creat Clear Calc Estimated GFR POC Glucose 304 H 254 H Random Glucose Calcium Microbiology Microbiology Results: Microbiology 08/06/23 10:22 Blood Culture - Preliminary Blood - Venous No growth after 24 hours. 08/06/23 10:22 Blood Culture - Preliminary Blood - Venous No growth after 24 hours. Procedures Date of Service Date of Service: 08/07/23 Progress Note: A&P Assessment and plan (1) Appendicitis: Status: Acute Assessment and Plan: pt admitted with abdo pain normal wbc but tender abdo -? colitis vs appendicitis - today wbc elevated but feeling better, cont with nausea. ? if this is more appendicitis vs colitis- pt feeling better and no indiciation for surgery at this time. plan to keep npo, ivf, nausea meds, on zosyn, check labs in am if pt worsens clinically or wbc cont to elevate consider explor laparoscopy and appendectomy will reasses in am. pt agrees and understands the plan Time Spent With Patient Time: Total time managing care of this patient today ____ minutes. Quality Stroke Does the patient have a stroke diagnosis?: No VTE Prior VTE?: No VTE Risk Level:: Surgical - moderate VTE Device Contraindication: N/A - Device Ordered VTE Drug Contraindication: N/A - Med Ordered
[2023-08-07 16:16] LABS: Glucose, Whole Blood 171 mg/dL (60-115)
[2023-08-07 20:25] LABS: Glucose, Whole Blood 166 mg/dL (60-115)
[2023-08-07] MEDS: Atorvastatin Calcium 20 MG TABLET PO (20:42)
[2023-08-08] MEDS: Piperacillin Sodium/Tazobactam 3.375 GM in 0.9 % Sodium Chloride 50 ML IV ×2 (03:13→09:13)
[2023-08-08 03:24] VITALS: BP 157/70; PULSE 98; RESP 20; TEMP 36.9; O2SAT 93
[2023-08-08] MEDS: Lactated Ringers 1,000 ML 100 ML IVCONT ×2 (05:17→14:54)
[2023-08-08] MEDS: ondansetron HCL 4 MG/2 ML VIAL IVPUSH ×2 (05:53→11:45)
[2023-08-08 07:14] LABS: Glucose, Whole Blood 235 mg/dL (60-115)
[2023-08-08 07:29] LABS: Basophils Percent Auto 0.2 % (0-2); Eosinophils Percent Auto 0.1 % (0-4); Hematocrit 35.4 % (37.0-47.0); Hemoglobin 11.5 g/dl (12.0-16.0); Imm Gran Abs Auto 0.09 X10*3/uL (0.00-0.03); Imm Gran Pct Auto 0.6 % (0.0-0.4); Lymphocytes Absolute Auto 0.6 X10*3/uL (1.2-4.9); Lymphocytes Percent Auto 4.2 % (20-40); MANUAL DIFF FLAG SCAN; Mean Corpuscular HGB Conc 32.5 g/dl (31.0-35.0); Mean Corpuscular Hemoglobin 29.3 pg (27.0-33.0); Mean Corpuscular Volume 90.3 fL (80.0-98.0); Mean Platelet Volume 10.4 fL (9.4-12.3); Monocytes Absolute Auto 0.6 X10*3/uL (0.1-1.2); Monocytes Percent Auto 4.1 % (2-11); Neutrophils Absolute Auto 12.9 x10*3/uL (2.0-8.3); Neutrophils Percent Auto 90.8 % (45-73); Platelet Count 226 X10*3/uL (160-400); Red Blood Count 3.92 X10*6/uL (4.20-5.50); Red Cell Distribution Width 14.1 % (11.0-16.0); SCAN SMEAR FLAG 1; White Blood Count 14.2 X10*3/uL (4.8-10.8)
[2023-08-08 07:34] VITALS: BP 143/68; PULSE 104; RESP 18; TEMP 36.4; O2SAT 94
[2023-08-08 07:54] LABS: Anion Gap 15 (12-20); Blood Urea Nitrogen 27 mg/dL (9-16); Calcium 9.3 mg/dL (8.4-10.2); Carbon Dioxide 21 mmol/L (22-29); Chloride 110 mmol/L (96-108); Creatinine Clr Calc Pharmacy 62.8; Estimated Glomerular Filt Rate > 60; Glucose Fasting 222 mg/dL (60-99); Potassium 3.7 mmol/L (3.3-5.1); Sodium 142 mmol/L (135-145)
[2023-08-08] MEDS: Insulin Lispro 100 UNIT/ML 3 ML VIAL SUBCUT ×2 (09:04→21:29)
[2023-08-08] MEDS: Insulin Glargine,Hum.rec.anlog 100 UNIT/ML 10 ML VIAL 20 UNIT SUBCUT (09:06)
[2023-08-08] MEDS: Enoxaparin Sodium 40 MG/0.4 ML SYRINGE SUBCUT (09:09)
[2023-08-08] MEDS: Metoclopramide HCl 10 MG/2 ML VIAL IVPUSH ×2 (09:15→15:41)
--- NOTE | 2023-08-08 09:35 | P.PNIM_ITS ---
Subjective Subjective Date of Service: 08/08/23 Interval History: improving Physical Exam 2 Vital Signs: Vital Signs: Last Vital Signs Temp 97.6 F 08/08/23 07:34 Pulse 104 H 08/08/23 07:34 Resp 18 08/08/23 07:34 BP 143/68 H 08/08/23 07:34 Pulse Ox 94 08/08/23 07:34 O2 Del Method Room Air 08/08/23 07:34 O2 Flow Rate 94 08/06/23 11:00 BMI result Body Mass Index 25.8 Const: General: cooperative and ill appearing (mildly ill appearing) O rientation/consciousness: oriented to person, oriented to place and oriented to time HEENT: Head: Yes normal to inspection Resp: Effort & Inspection: normal respiratory effort and able to speak in complete sentences Auscultation: clear to auscultation bilaterally Cardio: Rate: regular rate Rhythm: regular rhythm GI: Other: abdo soft little tender rlq with some mild guarding less tender left side no guarding or rebound and active bowel sounds Skin: General skin exam: no rashes or lesions noted Neuro: General: oriented to person, oriented to place and oriented to time Objective Data Active Medications Aspirin (Aspirin Enteric Coated 81 Mg Tablet.) 81 mg PO DAILY [facility] Last Admin: 08/08/23 09:06 Dose: Not Given Documented By: NKIO Non-Admin Reason: Patient Refused Atorvastatin Calcium (Atorvastatin Calcium 20 Mg Tablet) 20 mg PO BEDTIME [facility] Last Admin: 08/07/23 20:42 Dose: 20 mg Documented By: ALLEY Calcium Carbonate (Calcium Carbonate 500 Mg Tablet) 1,000 mg PO DAILY [facility] Last Admin: 08/08/23 09:06 Dose: Not Given Documented By: NIKO Non-Admin Reason: Patient Refused Dextrose (Dextrose 50 % 25 Gm/50 Ml Syringe) 25 gm IVPUSH Q15M PRN; Protocol PRN Reason: per Hypoglycemia Standing Ord. Dextrose (Dextrose 50 % 25 Gm/50 Ml Syringe) 25 gm IVPUSH Q15M PRN; Protocol PRN Reason: per Hypoglycemia Standing Ord. Enoxaparin Sodium (Enoxaparin Sodium 40 Mg/0.4 Ml Syringe) 40 mg SUBCUT Q24H [facility] Last Admin: 08/08/23 09:09 Dose: 40 mg Documented By: NIKO Glucose (Glucose Gel 15 Gm Gel..Gram.) 15 gm PO Q15M PRN; Protocol PRN Reason: per Hypoglycemia Standing Ord. Hydromorphone HCl (Hydromorphone Hcl 0.5 Mg/0.5 Ml Syringe) 0.5 mg IVPUSH Q3H PRN; Protocol PRN Reason: Pain, Severe (Pain Scale 7-10) Last Admin: 08/07/23 23:47 Dose: 0.5 mg Documented By: ALLEY Acetaminophen (irmev) 1,000 mg in 100 mls @ 400 mls/hr IV Q6H PRN PRN Reason: Pain, Moderate(Pain Scale 4-6) Piperacillin Sod/Tazobactam (Sod 3.375 gm/ Sodium Chloride) 50 mls @ 100 mls/hr IV Q6H [facility] Last Admin: 08/08/23 09:13 Dose: 100 mls/hr Documented By: NIKO Insulin Glargine (Insulin Glargine,Hum.Rec.Anlog 100 Unit/Ml 10 Ml Vial) 20 unit SUBCUT DAILY [facility] Last Admin: 08/08/23 09:06 Dose: 20 unit Documented By: NIKO Insulin Human Lispro (Insulin Lispro 100 Unit/Ml 3 Ml Vial) 0 unit SUBCUT QIDACHS [facility]; Protocol Last Admin: 08/08/23 09:04 Dose: 4 unit Documented By: NIKO Metoclopramide HCl (Metoclopramide Hcl 10 Mg/2 Ml Vial) 10 mg IVPUSH Q6H PRN PRN Reason: Nausea and Vomiting Last Admin: 08/08/23 09:15 Dose: 10 mg Documented By: NIKO Ondansetron HCl (Ondansetron Hcl 4 Mg/2 Ml Vial) 4 mg IVPUSH QID PRN PRN Reason: Nausea Last Admin: 08/08/23 05:53 Dose: 4 mg Documented By: ALLEY Sodium Chloride (0.9 % Sodium Chloride Flush 3 Ml Syringe) [facility] Last Admin: 08/08/23 09:06 Dose: Not Given Documented By: NIKO Non-Admin Reason: IV Running Zolpidem Tartrate (Zolpidem Tartrate 5 Mg Tablet) 5 mg PO BEDTIME PRN PRN Reason: Insomnia Labs 08/08/23 07:14 08/08/23 07:14 Labs: Laboratory Results - last 24 hr 08/07/23 08/07/23 08/07/23 11:00 16:08 20:18 MCV MCH MCHC RDW Plt Count MPV Immature Gran % (Auto) Neut % (Auto) Lymph % (Auto) [place] % (Auto) Eos % (Auto) Baso % (Auto) Lymph # (Auto) [place] # (Auto) Eos # (Auto) Baso # (Auto) Abs Immat Gran (auto) Absolute Neuts (auto) Absolute Nucleated RBC Nucleated RBC % (auto) Smear Tech's Comments Anion Gap Estim Creat Clear Calc Estimated GFR POC Glucose 254 H 171 H 166 H Fasting Glucose Calcium 08/08/23 08/08/23 07:07 07:14 MCV 90.3 MCH 29.3 MCHC 32.5 RDW 14.1 Plt Count 226 MPV 10.4 Immature Gran % (Auto) 0.6 H Neut % (Auto) 90.8 H Lymph % (Auto) 4.2 L [place] % (Auto) 4.1 Eos % (Auto) 0.1 Baso % (Auto) 0.2 Lymph # (Auto) 0.6 L [place] # (Auto) 0.6 Eos # (Auto) 0.0 Baso # (Auto) 0.0 Abs Immat Gran (auto) 0.09 H Absolute Neuts (auto) 12.9 H Absolute Nucleated RBC 0.000 Nucleated RBC % (auto) 0.0 Smear Tech's Comments Not Reportable Anion Gap 15 Estim Creat Clear Calc 62.8 Estimated GFR > 60 POC Glucose 235 H Fasting Glucose 222 H Calcium 9.3 Microbiology Microbiology Results: Microbiology 08/06/23 10:22 Blood Culture - Preliminary Blood - Venous No growth after 24 hours. 08/06/23 10:22 Blood Culture - Preliminary Blood - Venous No growth after 24 hours. Assessment and Plan (1) Insulin dependent type 1 diabetes mellitus: Status: Acute Plan 72-year-old female with a PMH significant for insulin-dependent diabetes type 1, HTN, HLD, osteoporosis, and hx of Graves disease admitted for abdominal pain DM1 with hyperglycemia restarted long acting insulin, increase to 20units, continue sliding scale, monitor closely htn hctz on hold while on ivf hld statin graves not on meds full code Quality Stroke Does the patient have a stroke diagnosis?: No VTE Prior VTE?: No VTE Risk Level:: Surgical - moderate VTE Device Contraindication: N/A - Device Ordered VTE Drug Contraindication: N/A - Med Ordered
[2023-08-08 11:02] LABS: Glucose, Whole Blood 168 mg/dL (60-115)
[2023-08-08 11:03] VITALS: BP 169/73; PULSE 93; RESP 18; TEMP 36.8; O2SAT 95
[2023-08-08 15:22] VITALS: BP 167/72; PULSE 103; RESP 18; TEMP 36.8; O2SAT 97
[2023-08-08] MEDS: Lactated Ringers 1,000 ML 80 ML IVCONT (15:45)
[2023-08-08 16:16] LABS: Glucose, Whole Blood 166 mg/dL (60-115)
[2023-08-08] MEDS: levoFLOXacin/D5W 500 MG/100 ML PIGGYBACK 100 MG IV (16:23)
[2023-08-08] MEDS: metroNIDAZOLE/NS 500 MG/100 ML PIGGYBACK 100 MG IV (17:30)
[2023-08-08] MEDS: Pantoprazole Sodium 40 MG/10 ML VIAL IVPUSH (17:30)
[2023-08-08 19:37] VITALS: BP 161/71; PULSE 92; RESP 18; TEMP 36.8; O2SAT 95
[2023-08-08 20:10] LABS: Glucose, Whole Blood 193 mg/dL (60-115)
[2023-08-08] MEDS: cloNIDine HCL 0.2 MG TABLET PO (21:28)
[2023-08-08] MEDS: Atorvastatin Calcium 20 MG TABLET PO (21:28)
[2023-08-08] MEDS: lisinopriL 20 MG TABLET PO (21:29)
[2023-08-08] MEDS: amLODIPine Besylate 5 MG TABLET PO (21:29)
--- NOTE | 2023-08-08 22:11 | PM.PNGS ---
Subjective Subjective Date of Service: 08/08/23 Interval history: pt still with significant nausea despite alternating zofran and reglan, had dry heaving but not much emesis afebrile, says abdomen much less tender, not bloated, had a bowel movement passing gas, no urinary issues no shortness of breath issues Physical Exam Vital Signs: Vital Signs: Last Vital Signs Temp 98.3 F 08/08/23 19:37 Pulse 92 08/08/23 19:37 Resp 18 08/08/23 19:37 BP 161/71 H 08/08/23 19:37 Pulse Ox 95 08/08/23 19:37 O2 Del Method Room Air 08/08/23 19:37 O2 Flow Rate 94 08/06/23 11:00 BMI result Body Mass Index 25.8 Const: General: cooperative, acute distress mild and lethargic Orientation/consciousness: lethargic Resp: Effort & Inspection: normal respiratory effort Auscultation: clear to auscultation bilaterally Cardio: Rate: regular rate Rhythm: regular rhythm GI: Other: abdomen soft mild tenderness to deep palpation on left and right lower abdomen, nondistended and active bowel sounds Objective Data Active Medications Amlodipine Besylate (Amlodipine Besylate 5 Mg Tablet) 5 mg PO BID ON LICENSE OF [facility] Last Admin: 08/08/23 21:29 Dose: 5 mg Documented By: OSWALDO Aspirin (Aspirin Enteric Coated 81 Mg Tablet.) 81 mg PO DAILY ON LICENSE OF [facility] Last Admin: 08/08/23 09:06 Dose: Not Given Documented By: NIKO Non-Admin Reason: Patient Refused Atorvastatin Calcium (Atorvastatin Calcium 20 Mg Tablet) 20 mg PO BEDTIME ON LICENSE OF [facility] Last Admin: 08/08/23 21:28 Dose: 20 mg Documented By: OSWALDO Calcium Carbonate (Calcium Carbonate 500 Mg Tablet) 1,000 mg PO DAILY ON LICENSE OF [facility] Last Admin: 08/08/23 09:06 Dose: Not Given Documented By: NIKO Non-Admin Reason: Patient Refused Clonidine HCl (Clonidine Hcl 0.2 Mg Tablet) 0.2 mg PO BID ON LICENSE OF [facility]; Protocol Last Admin: 08/08/23 21:28 Dose: 0.2 mg Documented By: OSWALDO Dextrose (Dextrose 50 % 25 Gm/50 Ml Syringe) 25 gm IVPUSH Q15M PRN; Protocol PRN Reason: per Hypoglycemia Standing Ord. Dextrose (Dextrose 50 % 25 Gm/50 Ml Syringe) 25 gm IVPUSH Q15M PRN; Protocol PRN Reason: per Hypoglycemia Standing Ord. Enoxaparin Sodium (Enoxaparin Sodium 40 Mg/0.4 Ml Syringe) 40 mg SUBCUT Q24H ON LICENSE OF [facility] Last Admin: 08/08/23 09:09 Dose: 40 mg Documented By: NIKO Glucose (Glucose Gel 15 Gm Gel..Gram.) 15 gm PO Q15M PRN; Protocol PRN Reason: per Hypoglycemia Standing Ord. Hydromorphone HCl (Hydromorphone Hcl 0.5 Mg/0.5 Ml Syringe) 0.5 mg IVPUSH Q3H PRN; Protocol PRN Reason: Pain, Severe (Pain Scale 7-10) Last Admin: 08/07/23 23:47 Dose: 0.5 mg Documented By: ALLEY Acetaminophen (Ofirmev) 1,000 mg in 100 mls @ 400 mls/hr IV Q6H PRN PRN Reason: Pain, Moderate(Pain Scale 4-6) Lactated Ringer's (Lr) 1,000 mls @ 80 mls/hr IVCONT .[id number] ON LICENSE OF [facility] Last Admin: 08/08/23 15:45 Dose: 80 mls/hr Documented By: SHI Metronidazole (Flagyl) 500 mg in 100 mls @ 100 mls/hr IV Q6H ON LICENSE OF [facility] Last Infusion: 08/08/23 18:38 Dose: Infused Documented By: SHI Levofloxacin (Levaquin) 500 mg in 100 mls @ 100 mls/hr IV Q24H ON LICENSE OF [facility] Last Infusion: 08/08/23 17:40 Dose: Infused Documented By: SHI Insulin Glargine (Insulin Glargine,Hum.Rec.Anlog 100 Unit/Ml 10 Ml Vial) 20 unit SUBCUT DAILY ON LICENSE OF [facility] Last Admin: 08/08/23 09:06 Dose: 20 unit Documented By: NIKO Insulin Human Lispro (Insulin Lispro 100 Unit/Ml 3 Ml Vial) 0 unit SUBCUT QIDACHS ON LICENSE OF [facility]; Protocol Last Admin: 08/08/23 21:29 Dose: 2 unit Documented By: OSWALDO Lisinopril (Lisinopril 20 Mg Tablet) 20 mg PO BID ON LICENSE OF [facility] Last Admin: 08/08/23 21:29 Dose: 20 mg Documented By: OSWALDO Metoclopramide HCl (Metoclopramide Hcl 10 Mg/2 Ml Vial) 10 mg IVPUSH Q6H PRN PRN Reason: Nausea and Vomiting Last Admin: 08/08/23 15:41 Dose: 10 mg Documented By: SHI Ondansetron HCl (Ondansetron Hcl 4 Mg/2 Ml Vial) 4 mg IVPUSH QID PRN PRN Reason: Nausea Last Admin: 08/08/23 11:45 Dose: 4 mg Documented By: NIKO Pantoprazole Sodium (Pantoprazole Sodium 40 Mg/10 Ml Vial) 40 mg IVPUSH DAILY@0630 ON LICENSE OF [facility] Sodium Chloride (0.9 % Sodium Chloride Flush 3 Ml Syringe) 3 ml IVFLUSH QSHIFT ON LICENSE OF [facility] Last Admin: 08/08/23 15:56 Dose: Not Given Documented By: SHI Non-Admin Reason: IV Running Zolpidem Tartrate (Zolpidem Tartrate 5 Mg Tablet) 5 mg PO BEDTIME PRN PRN Reason: Insomnia Labs 08/08/23 07:14 08/08/23 07:14 Labs: Laboratory Results - last 24 hr 08/08/23 08/08/23 08/08/23 07:07 07:14 10:54 MCV 90.3 MCH 29.3 MCHC 32.5 RDW 14.1 Plt Count 226 MPV 10.4 Immature Gran % (Auto) 0.6 H Neut % (Auto) 90.8 H Lymph % (Auto) 4.2 L [place] % (Auto) 4.1 Eos % (Auto) 0.1 Baso % (Auto) 0.2 Lymph # (Auto) 0.6 L [place] # (Auto) 0.6 Eos # (Auto) 0.0 Baso # (Auto) 0.0 Abs Immat Gran (auto) 0.09 H Absolute Neuts (auto) 12.9 H Absolute Nucleated RBC 0.000 Nucleated RBC % (auto) 0.0 Smear Tech's Comments Not Reportable Anion Gap 15 Estim Creat Clear Calc 62.8 Estimated GFR > 60 POC Glucose 235 H 168 H Fasting Glucose 222 H Calcium 9.3 08/08/23 08/08/23 16:11 19:57 MCV MCH MCHC RDW Plt Count MPV Immature Gran % (Auto) Neut % (Auto) Lymph % (Auto) [place] % (Auto) Eos % (Auto) Baso % (Auto) Lymph # (Auto) [place] # (Auto) Eos # (Auto) Baso # (Auto) Abs Immat Gran (auto) Absolute Neuts (auto) Absolute Nucleated RBC Nucleated RBC % (auto) Smear Tech's Comments Anion Gap Estim Creat Clear Calc Estimated GFR POC Glucose 166 H 193 H Fasting Glucose Calcium Microbiology Microbiology Results: Microbiology 08/06/23 10:22 Blood Culture - Preliminary Blood - Venous No growth after 48 hours. 08/06/23 10:22 Blood Culture - Preliminary Blood - Venous No growth after 48 hours. Procedures Date of Service Date of Service: 08/08/23 Progress Note: A&P Assessment and plan (1) Appendicitis: Status: Acute Assessment and Plan: Pt with immproved ambo pain but wbc elevated and nausea ongoing -?etiology for this discussed withmed team will change antibx check labs in am if still elevated wbc and not feeling well consider repeat ct with po and iv contrast she agrees with plan Time Spent With Patient Time: Total time managing care of this patient today ____ minutes. Quality Stroke Does the patient have a stroke diagnosis?: No VTE Prior VTE?: No VTE Risk Level:: Surgical - moderate VTE Device Contraindication: N/A - Device Ordered VTE Drug Contraindication: N/A - Med Ordered
[2023-08-08 23:49] VITALS: BP 120/57; PULSE 74; RESP 20; TEMP 36.4; O2SAT 95
[2023-08-09] MEDS: 0.9 % Sodium Chloride Flush 3 ML SYRINGE IVFLUSH
[2023-08-09] MEDS: metroNIDAZOLE/NS 500 MG/100 ML PIGGYBACK 100 MG IV ×3 (01:00→12:19)
[2023-08-09 03:27] VITALS: BP 142/62; PULSE 76; RESP 18; TEMP 36.6; O2SAT 96
[2023-08-09] MEDS: Lactated Ringers 1,000 ML 80 ML IVCONT (05:52)
[2023-08-09] MEDS: Pantoprazole Sodium 40 MG/10 ML VIAL IVPUSH (05:53)
[2023-08-09 06:43] LABS: MANUAL DIFF FLAG NO
[2023-08-09 06:52] LABS: Basophils Percent Auto 0.2 % (0-2); Eosinophils Percent Auto 0.3 % (0-4); Hematocrit 33.7 % (37.0-47.0); Imm Gran Abs Auto 0.06 X10*3/uL (0.00-0.03); Imm Gran Pct Auto 0.5 % (0.0-0.4); Lymphocytes Absolute Auto 1.1 X10*3/uL (1.2-4.9); Lymphocytes Percent Auto 9.9 % (20-40); Mean Corpuscular HGB Conc 32.6 g/dl (31.0-35.0); Mean Corpuscular Hemoglobin 28.7 pg (27.0-33.0); Mean Platelet Volume 10.2 fL (9.4-12.3); Monocytes Absolute Auto 0.7 X10*3/uL (0.1-1.2); Monocytes Percent Auto 6.5 % (2-11); Neutrophils Absolute Auto 9.3 x10*3/uL (2.0-8.3); Neutrophils Percent Auto 82.6 % (45-73); Platelet Count 229 X10*3/uL (160-400); Red Blood Count 3.83 X10*6/uL (4.20-5.50); White Blood Count 11.2 X10*3/uL (4.8-10.8)
[2023-08-09 07:09] LABS: Amylase 54 U/L (28-100); Lipase 8 U/L (8-78)
[2023-08-09 07:11] VITALS: BP 136/58; PULSE 75; RESP 16; TEMP 36.3; O2SAT 95
[2023-08-09 07:15] LABS: Alanine Aminotransferase 19 U/L (0-31); Albumin Level 3.3 g/dL (3.5-5.0); Alkaline Phosphatase 60 U/L (39-117); Anion Gap 12 (12-20); Aspartate Amino Transferase 26 U/L (5-31); Bilirubin Total 0.4 mg/dL (0.0-1.0); Blood Urea Nitrogen 24 mg/dL (9-16); Calcium 9.1 mg/dL (8.4-10.2); Carbon Dioxide 27 mmol/L (22-29); Chloride 111 mmol/L (96-108); Estimated Glomerular Filt Rate > 60; Glucose Random 157 mg/dL (60-115); Potassium 3.6 mmol/L (3.3-5.1); Sodium 146 mmol/L (135-145); Total Protein 5.9 g/dL (6.5-8.0)
[2023-08-09 08:12] LABS: Glucose, Whole Blood 144 mg/dL (60-115)
[2023-08-09] MEDS: amLODIPine Besylate 5 MG TABLET PO (08:26)
[2023-08-09] MEDS: cloNIDine HCL 0.2 MG TABLET PO (08:27)
[2023-08-09] MEDS: Enoxaparin Sodium 40 MG/0.4 ML SYRINGE SUBCUT (08:27)
[2023-08-09] MEDS: lisinopriL 20 MG TABLET PO (08:27)
[2023-08-09] MEDS: Insulin Glargine,Hum.rec.anlog 100 UNIT/ML 10 ML VIAL 20 UNIT SUBCUT (08:32)
[2023-08-09 11:06] VITALS: BP 126/61; PULSE 67; RESP 20; TEMP 36.7; O2SAT 99
[2023-08-09 12:01] LABS: Glucose, Whole Blood 121 mg/dL (60-115)
--- NOTE | 2023-08-09 12:07 | P.DS_ITS ---
DS: Providers Provider Date of Service: 08/09/23 Date of admission: 08/09/23 09:57 Date of discharge: 08/09/23 Primary care physician: Unknown Physician Admitting clinician: Héctor Anaya Consults: 08/06/23 09:12 Consult to Hospitalist Routine Comment: Consulting Provider: Hospitalist Reason For Exam: IDDM, med management Attending physician on discharge: Silvia Umanzor DS: Diagnosis Discharge Diagnosis (1) Appendicitis: Start date: 08/06/23 Status: Acute DS: Summary Hospital Course Hospital Course: the patient is 72-year-old female came into the emergency room not feeling well and CT scan showed question of fell appendicitis versus colitis. Her white count was normal at the time. She was admitted and put on Zosyn IV with some light diet. For the next 2 days she had improvement with her abdominal exam but she was extremely nauseated. Uncertain why. Eventually her white count and so going down went up and despite her improved abdominal exam we decided to switch her antibiotics could she was concerned that maybe this was making her so nauseated and unable to eat and feeling uncomfortable. She was switched to Levaquin and Flagyl improved with her white count decreasing overnight and her nausea stopping and generally feeling great. Her diet was advanced and she tolerated this well. Plan is to discharge her home with a week's worth of Flagyl and levofloxacin and see how she does in the office next week. In regards to the cause of her issues may be this with been and early appendicitis. She understands and agrees with the above plan and is aware that if her pain gets worse or she were to develop a fever etc. that she will call and let us know sooner than later. Status at Discharge Cognitive/behavioral status at discharge: Normal Functional status at discharge: independent ambulation Overall status at discharge: patient is progressing back to baseline Time Attestation Total time managing care of this patient today: 45 mintues. Discharge coordination time: Greater than 30 minutes Quality: Safe Use of Opioids Does Pt have an Active Cancer Diagnosis on the Problem List?: No Quality: Stroke Does the patient have a stroke diagnosis?: No Physical Exam Vital Signs: Vital Signs: Last Vital Signs Temp 98.0 F 08/09/23 11:06 Pulse 67 08/09/23 11:06 Resp 20 08/09/23 11:06 BP 126/61 08/09/23 11:06 Pulse Ox 99 08/09/23 11:06 O2 Del Method Room Air 08/09/23 11:06 O2 Flow Rate 94 08/06/23 11:00 BMI result Body Mass Index 25.8 Const: General: cooperative, healthy appearing, comfortable and no acute distress Resp: Effort & Inspection: normal respiratory effort Auscultation: clear to auscultation bilaterally Cardio: Rate: regular rate Rhythm: regular rhythm GI: Other: soft nontender nondistended active bowel sounds Psych: Appearance: grossly normal Mental Status: mental status grossly normal Affect: normal affect Attitude: cooperative Thought process: Normal thought process present Thought content: Normal thought content present Insight: Good insight present (Psych) Judgement: Good judgement present (Psych) DS: Data Data Completed and Pending Labs on day of discharge: Laboratory Results - last 24 hr 08/08/23 08/08/23 08/09/23 16:11 19:57 06:25 WBC 11.2 H RBC 3.83 L Hgb 11.0 L Hct 33.7 L MCV 88.0 MCH 28.7 MCHC 32.6 RDW 14.0 Plt Count 229 MPV 10.2 Immature Gran % (Auto) 0.5 H Neut % (Auto) 82.6 H Lymph % (Auto) 9.9 L [place] % (Auto) 6.5 Eos % (Auto) 0.3 Baso % (Auto) 0.2 Lymph # (Auto) 1.1 L [place] # (Auto) 0.7 Eos # (Auto) 0.0 Baso # (Auto) 0.0 Abs Immat Gran (auto) 0.06 H Absolute Neuts (auto) 9.3 H Absolute Nucleated RBC 0.000 Nucleated RBC % (auto) 0.0 Sodium 146 H Potassium 3.6 Chloride 111 H Carbon Dioxide 27 Anion Gap 12 BUN 24 H Creatinine 0.62 Estim Creat Clear Calc 77.0 Estimated GFR > 60 POC Glucose 166 H 193 H Random Glucose 157 H Calcium 9.1 Total Bilirubin 0.4 AST 26 ALT 19 Alkaline Phosphatase 60 Total Protein 5.9 L Albumin 3.3 L Amylase 54 Lipase 8 08/09/23 08/09/23 07:16 11:12 WBC RBC Hgb Hct MCV MCH MCHC RDW Plt Count MPV Immature Gran % (Auto) Neut % (Auto) Lymph % (Auto) [place] % (Auto) Eos % (Auto) Baso % (Auto) Lymph # (Auto) [place] # (Auto) Eos # (Auto) Baso # (Auto) Abs Immat Gran (auto) Absolute Neuts (auto) Absolute Nucleated RBC Nucleated RBC % (auto) Sodium Potassium Chloride Carbon Dioxide Anion Gap BUN Creatinine Estim Creat Clear Calc Estimated GFR POC Glucose 144 H 121 H Random Glucose Calcium Total Bilirubin AST ALT Alkaline Phosphatase Total Protein Albumin Amylase Lipase Preliminary micro results at discharge 08/06/23 10:22 Blood Culture - Preliminary Blood - Venous No growth after 48 hours. 08/06/23 10:22 Blood Culture - Preliminary Blood - Venous No growth after [address] scan - abdomen: Radiologist's impression: ITS Impressions Abdomen/Pelvis CT 08/06/23 07:40 IMPRESSION: Abnormal study of the pelvis. There is short segment mural thickening involving the sigmoid colon and abnormal appendix. Whether this represents appendicitis with colitis versus colitis with reactionary appendix inflammation. There is small amount of free fluid in the pelvis. No free air seen. Moderate to significant constipation especially large amount of stool in the low-lying cecum in pelvis. Fleischner guidelines were followed. Discharge Plan Discharge Anticipated Discharge Date/Time: 08/09/23 13:00 Patient Disposition: Home, Self-Care Discharge Diagnosis: abdominal pain Referrals: Physician,Unknown J [Primary Care Provider] - 1 Week Discharge Medications: New levofloxacin 500 mg tablet 500 mg PO DAILY Qty: 7 0RF metronidazole 500 mg tablet 500 mg PO Q8H Qty: 21 0RF Continued simvastatin 40 mg tablet 40 mg PO BEDTIME clonidine HCl 0.2 mg tablet 0.2 mg PO BID amlodipine-benazepril 5-20 mg capsule 1 cap PO BID hydrochlorothiazide 12.5 mg capsule 12.5 mg PO DAILY Levemir U-100 Insulin 100 unit/mL solution 22 unit subcut DAILY Levemir U-100 Insulin 100 unit/mL solution 3 unit subcut BEDTIME Prolia 60 mg/mL syringe 60 mg subcut Q6M Alfredo Felix U-100 Insulin 100 unit/mL insulin pen See Protocol subcut TIDAC Protocol: Insulin Correction Scale Less than or equal to 110 ---- Give (units): 0 111 to 150 Give (units): 0 151 to 200 Give (units): 2 201 to 250 Give (units): 4 251 to 300 Give (units): 6 301 to 350 Give (units): 8 Greater than 350 Give (units): 10 Call MD if Blood Glucose > : 350 aspirin 81 mg Tablet,Delayed Release (/Ec) 81 mg PO DAILY calcium citrate 250 mg calcium Tablet 1,000 mg PO DAILY Discharge Orders: Discharge Order (Routine); Ordered 08/09/23 Ordered By: Silvia Umanzor Diet: Advance to usual diet Activity on Discharge: As tolerated Stand Alone Forms: Patient Portal Discharge page Care Plan Goals: patient takes several smaller meals and eat more frequently throughout the day. Finish antibiotic course. no restrictions on activity Health Concerns: If patient's developed increased abdominal pain or fever she is to call the office and then schedule a sooner visit. If it is after hours and should come to the emergency room. Plan of Treatment: Patient to slowly resume light diet as described above. Follow-up in general surgery office with Dr. Anaya or Jessica as next week. Please call office on Friday for an appointment. Assessment: Patient is much improved and is stable for discharge
--- NOTE | 2023-08-11 10:44 | PM.EVENT ---
Event Note Date of Service: 08/11/23 Event Note: blood culture from 08/06/23 growing GNR, patient discharged on levaquin and flagyl (should cover), left message with patient for call back Time Spent With Patient Time: Total time managing care of this patient today ____ minutes.
== END 2023-08-09 14:14 | disposition home or self-care (01) | DRG 394 ==
LOC: HO.ED 07:19 → HO.EDOVER 09:31 → HO.IMC 13:57
PROVIDERS: Internal Medicine; Physician Assistant Medical; Surgery; Admitting Provider Surgery; Emergency Provider Emergency Medicine; PCP Physician Assistant Medical; Visit Provider Surgery
DX: K35.80 Unspecified acute appendicitis (principal); R78.81 Bacteremia; K52.9 Noninfective gastroenteritis and colitis, unspecified; E78.00 Pure hypercholesterolemia, unspecified; E10.65 Type 1 diabetes mellitus with hyperglycemia; E05.00 Thyrotoxicosis with diffuse goiter without thyrotoxic crisis or storm; Z79.82 Long term (current) use of aspirin; Z79.899 Other long term (current) drug therapy
CPT/HCPCS: 36415; 74177; 80048; 80053; 81001; 82150; 82248; 82947; 83690; 84484; 85025; 85027; 87040; 87205; 93005; 99222; 99285; C9113; J1170; J1650; J1836; J1956; J2270; J2405; J2543; J2765; J7120; Q9967

== ENCOUNTER → 2023-08-06 04:30 | Outpatient (BNV) | payer OTHER, SELFPAY | PROVIDERS: Emergency Provider Emergency Medicine; Visit Provider Surgery | DX: K35.890 Other acute appendicitis without perforation or gangrene (principal); K52.9 Noninfective gastroenteritis and colitis, unspecified | CPT/HCPCS: 99222; 99232; 99239 ==

== ENCOUNTER → 2023-08-06 09:11 | Outpatient (BNV) | payer OTHER, MEDICARE, SELFPAY | PROVIDERS: Admitting Provider Surgery; Emergency Provider Emergency Medicine; Visit Provider Student in an Organized Health Care Education/Training Program | DX: E10.9 Type 1 diabetes mellitus without complications (principal) | CPT/HCPCS: 99222; 99232; 99499 ==

== ENCOUNTER 2023-08-19 10:01 | Outpatient (AMB) | payer OTHER, SELFPAY ==
--- NOTE | 2023-08-19 10:08 | A.OFFVIS_ITS ---
Intake Intake Visit Reasons: Follow Up Appendicitis Intake Note: Patient is seen in office for ER follow up visit, following abdominal pain. Pt c/o: was admitted at ED due to pain, was given antibiotics and pain meds at the time, currently has no symptoms, denies nausea, vomit, diarrhea, constipation CT & ER:08/06/23 [employer]estock [employer] Required: No Accompanied by: Self / Same As Patient Allergies neomycin [NEOMYCIN] Allergy (Mild, Verified 08/19/23 10:17) LOCAL EAR SWELLING FROM EAR DROPS YEARS AGO Medication List - Last Reconciled 08/19/23 by Héctor Anaya MD amlodipine-benazepril 5-20 mg 1 cap PO BID aspirin 81 mg PO DAILY calcium citrate 1,000 mg PO DAILY clonidine HCl 0.2 mg PO BID denosumab (Prolia) 60 mg subcut Q6M hydrochlorothiazide 12.5 mg PO DAILY insulin detemir U-100 (Levemir U-100 Insulin) 22 units subcut DAILY insulin detemir U-100 (Levemir U-100 Insulin) 3 units subcut BEDTIME insulin lispro-aabc (Lyumjev KwikPen U-100 Insulin) See Protocol sliding scale doses subcut TIDAC simvastatin 40 mg PO BEDTIME HPI HPI Comments History of Present Illness Details 72-year-old female patient returning following a recent hospitalization for lower abdominal pain Possibly due to colitis versus early appendicitis. she was treated non operatively with IV antibiotics and subsequently had resolution of her abdominal pain. After discharge she did report some abdominal pain lower abdomen associated with nausea and vomiting followed by diarrhea. By Friday however she was free of any pain, nausea or vomiting. She feels great today. She is planning on traveling to the [facility] for the holidays [facility] Medical History Graves disease Osteoporosis Hypercholesterolemia Hypertension Insulin dependent type 1 diabetes mellitus Surgical History H/O section Family History Mother Breast cancer Social History Patient Tobacco Use Status: Never used Tobacco service: No Review of Systems Const All systems reviewed & are unremarkable except as noted in HPI and below Physical Exam Const General: comfortable and no acute distress Nutritional Appearance: well nourished Orientation/consciousness: patient oriented x3 Limitations: no limitations Resp Effort & Inspection: normal respiratory effort, no audible wheezes, no cough and no respiratory distress GI Inspection: Yes normal to inspection Palpation (GI): Soft to palpation, nontender, no guarding, not rigid and No hepatosplenomegaly present Skin General skin exam: no rashes or lesions noted Neuro General: patient oriented x3 Extrem General: Yes no clubbing, cyanosis or edema Assessment & Plan Assessment & Plan (1) Colitis: Code(s): K52.9 - Noninfective gastroenteritis and colitis, unspecified Plan 72-year-old female patient admitted for abdominal pain lower abdomen which is now resolved. She is tolerating regular diet without nausea or vomiting. Her bowels have returned to normal as well. Should follow up as needed. Coding Level of Care Code Est Pt Level 3 (50352) Diagnoses Colitis K52.9
== END 2023-08-19 10:26 | disposition home or self-care (01) ==
PROVIDERS: PCP Physician Assistant Medical; Visit Provider Surgery
DX: K52.9 Noninfective gastroenteritis and colitis, unspecified (principal)
CPT/HCPCS: 99213

== ENCOUNTER → 2023-08-19 10:01 | Outpatient (BNVA) | payer OTHER, MEDICARE, SELFPAY | PROVIDERS: PCP Physician Assistant Medical; Visit Provider Surgery ==